=== PATIENT | male | born 1995 | race African-American/Black ===

== ENCOUNTER 2019-06-26 15:26 | Emergency (ER) | payer OTHER ==
[~2019-06-26] VITALS: Ht 167.6 cm; Wt 59.0 kg
--- NOTE | 2019-06-26 15:39 | NUR ---
ED Nurse Note: Pt ambulated to ED with some behavioral complaint. Placed on chair. Pt is calm, able to verbalize his needs and follow commands. VSS.
--- NOTE | 2019-06-26 15:43 | NUR ---
ED Nurse Note: PA on bedside.
[2019-06-26 15:44] VITALS: BP 110/70
--- NOTE | 2019-06-26 16:05 | Emergency Room Report ---
History of Present Illness General Chief Complaint: Behavioral Complaint Source: Patient Present Illness HPI 23-year-old male presents to the emergency department complaining of auditory hallucinations x6 months. Patient reports his symptoms have been progressive in frequency and are now occurring almost daily. Reports being previously on a antidepressant medication for which he self discontinued last year. Patient denies SI he reports auditory hallucinations that are instructing him to "cut his head off ". Patient denies intentions of following through these suggestions. Patient denies HI. Patient denies visual hallucinations. Patient denies illicit drug use. Patient states he is homeless and he has been migrating from long term discharge her and was just discharged from long-term yesterday for which he was detained for 4 days. He denies PSAs and does not currently taking any psychiatric medication. Patient reports that he believes that being homeless has a significant bearing on his current symptoms. He denies pain at this time. Denies CP, Palpitations, LOC, AMS, dizziness, Changes in Vision, Sensation, paresthesias, or a sudden severe headache. Denies ETOH dependence/abuse. Allergies: Coded Allergies: No Known Allergies (Unverified , 06/26/19) Patient History Past Medical History: see triage record, psych hx - depression previously on anti-depressant which he d/c last year. Past Surgical History: none Pertinent Family History: none Reviewed Nursing Documentation: PMH: Agreed; PSxH: Agreed Nursing Documentation-PM Past Medical History: No Stated History Review of Systems All Other Systems: negative except mentioned in HPI Physical Exam Vital Signs Date Time Temp Pulse Resp B/P (MAP) Pulse Ox O2 Delivery O2 Flow Rate FiO2 06/26/19 15:33 98.2 84 16 106/66 (79) 97 Room Air Sp02 EP Interpretation: reviewed, normal General Appearance: well appearing - not disheveled, no apparent distress, alert, GCS 15, non-toxic Head: normocephalic, atraumatic Eyes: bilateral eye normal inspection, bilateral eye PERRL ENT: hearing grossly normal, normal voice Neck: full range of motion Respiratory: chest non-tender, lungs clear, normal breath sounds, no respiratory distress, no wheezing, speaking full sentences Cardiovascular #1: regular rate, rhythm, normal capillary refill Gastrointestinal: normal bowel sounds, non tender, soft Musculoskeletal: normal range of motion, gait/station normal, non-tender Neurologic: alert, motor strength/tone normal, oriented x3, sensory intact, responsive, speech normal, normal gait Psychiatric: judgement/insight normal, depressed affect Suicide Risk Assessment: Suicidal Ideation: No - Pt. having auditory hallucinations suggesting nonspecific SI. Had intent to initiate attempt: No - Pt. has been practicing distraction techniques and decided to also consider pharmacotherapy Pt's plan for suicide attempt: No Has means to complete attempt: No Skin: no rash, normal color, normal inspection, other - no scars suggesting previous PSA's/Cutting Medical Decision Making PA Attestation Dr. Rodarte Is my supervising Physician whom patient management has been discussed with. Homeless Attestation I, The treating provider, Maricarmen BURGESS, has assessed and agrees that patient is medically stable for discharge to an outpatient disposition. Diagnostic Impression: Primary Impression: Continuous auditory hallucinations Additional Impression: Behavioral disorder ER Course 23-year-old male presents to the emergency department complaining of auditory hallucinations x6 months. Patient reports his symptoms have been progressive in frequency and are now occurring almost daily. Reports being previously on a antidepressant medication for which he self discontinued last year. Patient denies SI he reports auditory hallucinations that are instructing him to "cut his head off ". Patient denies intentions of following through these suggestions. Patient denies HI. Patient denies visual hallucinations. Patient denies illicit drug use. Patient states he is homeless and he has been migrating from long term discharge her and was just discharged from long-term yesterday for which he was detained for 4 days. He denies PSAs and does not currently taking any psychiatric medication. Patient reports that he believes that being homeless has a significant bearing on his current symptoms. He denies pain at this time. Denies CP, Palpitations, LOC, AMS, dizziness, Changes in Vision, Sensation, paresthesias, or a sudden severe headache. Denies ETOH dependence/abuse. Denies psychiatric hosp. No intentions on acting on male voice. Pt is calm and cooperative. Does not appear to be responding to internal stimuli. He is requesting food multiple times and has consumed multiple food items. Ddx considered but are not limited to OD, SI/HI, psychosis, UTI, intoxication Vital signs: are WNL, pt. is afebrile H&PE are most consistent with behavioral/mental health issue-not demonstrating any acute danger to himself or others. Patient presented to the ED because he did not have intent on following through with suggestions that he is receiving from his auditory hallucinations. Patient has no PSAs no evidence to suggest previous harm to himself. ORDERS: -None required at this time. ED INTERVENTIONS: - none required at this time Discussed with this patient that he should follow-up with [facility] which is a 24-hour resource nearby where he can be fully evaluated by a psychiatrist and can review options of medications to help reduce/eliminate his symptoms. Discussed with this patient that he will also be given resources for long term and additional homeless resources. Discussed with patient the importance of returning to the emergency department if he at any time begins to consider harming himself or others. Patient verbally demonstrates his understanding and agreement with this treatment plan. DISPOSITION: Pt. stable for D/c for Outpatient psych. [facility] urgent care info is given to him. Pt. also given other resource information. Last Vital Signs Date Time Temp Pulse Resp B/P (MAP) Pulse Ox O2 Delivery O2 Flow Rate FiO2 06/26/19 15:33 98.2 84 16 106/66 (79) 97 Room Air Status: improved Disposition: HOME, SELF-CARE Condition: Stable Referrals: [facility] Patient Instructions: Medical Screening Exam Additional Instructions: Take medications as directed. Follow up with a Mental Health Specialist/ Psychiatrist in 3 days, even if your symptoms have resolved. --Please review [facility] resource information provided Return sooner to ED if new symptoms occur, or current symptoms become worse. - Please note that this Emergency Department Report was dictated using [employer] we[employer]her technology software, occasionally this can lead to erroneous entry secondary to interpretation by the dictation equipment. Maricarmen Connolly Jun 26, 2019 16:05
--- NOTE | 2019-06-26 16:15 | NUR ---
ED Nurse Note: Pt requested for a sandwich. Offered and given 2x.
[2019-06-26 16:32] VITALS: BP 122/84
--- NOTE | 2019-06-26 16:32 | NUR ---
ER DISCHARGE NOTE: Patient is cleared to be discharged per ERMD, pt is aox4, on room air, with stable vital signs. pt was given dc and prescription instructions. Referral for mental check up given; pt was able to verbalize understanding, pt id band removed. pt is able to ambulate with steady gait. pt took all belongings.
== END 2019-06-26 16:32 | disposition home or self-care (01) ==
LOC: EMR 15:50
DX: R44.0 Auditory hallucinations (principal); F91.9 Conduct disorder, unspecified
CPT/HCPCS: 99283